=== PATIENT | male | born 1980 | race Caucasian/White ===

== ENCOUNTER 2017-04-24 10:24 | Emergency (ER) | payer MEDICAID ==
[~2017-04-24] VITALS: Ht 172.7 cm; Wt 91.0 kg
[2017-04-24] MEDS ORDERED: IBUPROFEN 600MG TABLET PO ONE (13:30)
[2017-04-24 13:37] VITALS: BP 131/76
[2017-04-24] MEDS ORDERED: CEPHALEXIN 500MG CAPSULE PO ONE (13:45)
[2017-04-24] MEDS ORDERED: SULFAMETHOXAZOLE/TRIMETHOPRIM 800/160MG TABLET PO ONE (13:45)
== END 2017-04-24 13:54 | disposition home or self-care (01) ==
LOC: ER 10:50
DX: L03.116 Cellulitis of left lower limb (principal); Z88.5 Allergy status to narcotic agent
CPT/HCPCS: 99284

== ENCOUNTER 2018-10-15 07:59 | Emergency (ER) | payer MEDICAID ==
[~2018-10-15] VITALS: Ht 175.3 cm; Wt 91.0 kg
[2018-10-15 09:44] LABS: CLARITY URINE CLEAR (CLEAR); COLOR URINE YELLOW (YELLOW); KETONES URINE TRACE (NEGATIVE); LEUKOCYTE ESTERASE URINE NEGATIVE (NEGATIVE); NITRITE URINE NEGATIVE (NEGATIVE); OCCULT BLOOD URINE NEGATIVE (NEGATIVE); PH URINE 5.5 (4.5-8.0); PROTEIN URINE NEGATIVE (NEGATIVE); UROBILINOGEN URINE 0.2 E.U./dL (0.2-1.0)
[2018-10-15] MEDS ORDERED: IBUPROFEN 600MG TABLET PO STA (10:15)
[2018-10-15 11:40] VITALS: BP 112/66
[2018-10-15] MEDS ORDERED: ACETAMINOPHEN 500MG TABLET PO ONE (12:15)
== END 2018-10-15 13:20 | disposition home or self-care (01) ==
LOC: ER 07:59
DX: N43.3 Hydrocele, unspecified (principal); I86.1 Scrotal varices; N50.3 Cyst of epididymis; K42.9 Umbilical hernia without obstruction or gangrene; Z88.5 Allergy status to narcotic agent
CPT/HCPCS: 76870; 81003; 93976; 99284; Z7610

== ENCOUNTER 2024-11-15 21:31 | Emergency (ER) | payer MEDICAID, OTHER ==
[~2024-11-15] VITALS: Ht 172.7 cm; Wt 81.2 kg
[2024-11-15 21:45] VITALS: O2SAT 98
[2024-11-15 22:36] LABS: HEMATOCRIT 43.6 % (42.0-52.0); HEMOGLOBIN 14.9 g/dL (14.0-18.0); MEAN CORPUSCULAR HEMOGLOBIN 31.6 pg (28.0-32.0); MEAN CORPUSCULAR HGB CONC 34.2 g/dL (31.0-37.0); MEAN CORPUSCULAR VOLUME 92.4 fL (80.0-94.0); PLATELET 183 x1000/uL (130-400); RED BLOOD CELL COUNT 4.72 mill/uL (4.7-6.1); RED CELL DISTRIBUTION WIDTH 13.5 % (11.6-14.6); WHITE BLOOD COUNT 7.9 x1000/uL (4.5-11.0)
[2024-11-15 22:57] LABS: CHLORIDE 103 mEq/L (98-107); POTASSIUM 4.1 mEq/L (3.5-5.1); SODIUM 140 mEq/L (136-145)
[2024-11-15 22:58] LABS: CARBON DIOXIDE 27 mEq/L (21-32)
[2024-11-15 23:03] LABS: CREATININE 1.4 mg/dL (0.6-1.3); GLUCOSE 97 mg/dL (70-105); UREA NITROGEN BLOOD 26 mg/dL (9-23)
[2024-11-15 23:05] LABS: ALANINE AMINOTRANSFERASE 78 IU/L (10-49); ALBUMIN 4.6 g/dL (3.2-4.8); ASPARTATE AMINOTRANSFERASE 51 IU/L (<34); BILIRUBIN DIRECT < 0.1 mg/dL (<=3.0)
[2024-11-15 23:06] LABS: BILIRUBIN TOTAL 0.3 mg/dL (0.1-1.0)
[2024-11-15] MEDS: ONDANSETRON 4MG ODT PO ONE (23:42)
[2024-11-15] MEDS: KETOROLAC 30MG/ML VIAL IM ONE (23:43)
[2024-11-16 00:13] LABS: CLARITY URINE CLEAR (CLEAR); COLOR URINE YELLOW (YELLOW); GLUCOSE URINE NEGATIVE (NEGATIVE); KETONES URINE NEGATIVE (NEGATIVE); LEUKOCYTE ESTERASE URINE NEGATIVE (NEGATIVE); NITRITE URINE NEGATIVE (NEGATIVE); OCCULT BLOOD URINE NEGATIVE (NEGATIVE); PROTEIN URINE NEGATIVE (NEGATIVE); SPECIFIC GRAVITY URINE 1.025 (1.005-1.030); UROBILINOGEN URINE 0.2 E.U./dL (0.2-1.0)
[2024-11-16] MEDS ORDERED: IBUP-2029 MT (00:32)
[2024-11-16 00:41] VITALS: BP 134/70; PULSE 67; RESP 17; TEMP 36.7; O2SAT 96
== END 2024-11-16 00:40 | disposition home or self-care (01) ==
LOC: ER 21:31
DX: M20.012 Mallet finger of left finger(s) (principal); R10.11 Right upper quadrant pain; I10 Essential (primary) hypertension; Z88.8 Allergy status to other drugs, medicaments and biological substances; Z88.5 Allergy status to narcotic agent
CPT/HCPCS: 99285; 76705; 80076; 80048; 81003; 83690; 85027; 36415; 73130; 29130; 96372; J1885; Q0162